=== PATIENT | female | born 1990 | race African-American/Black ===

== ENCOUNTER 2016-05-09 12:30 | Emergency (ER) | payer OTHER ==
[2016-05-09 13:43] LABS: BILIRUBIN NEGATIVE (NEGATIVE); BLOOD TRACE-INTACT Ery/uL (NEGATIVE); CLARITY CLEAR (CLEAR); COLOR YELLOW (YELLOW); GLUCOSE (U) NORMAL (NORMAL); KETONE (U) NEGATIVE (NEGATIVE); LEUKOCYTES TRACE Leu/uL (NEGATIVE); NITRITE NEGATIVE (NEGATIVE); PROTEIN NEGATIVE (NEGATIVE); UROBILINOGEN 0.2 mg/dL (0.2-1.0)
[2016-05-09 13:54] LABS: BACTERIA TRACE
[2016-05-09 16:11] LABS: BASOPHIL 0.3 % (0-2); EOSINOPHIL 2.6 % (0-5); HCT 38.5 % (37.0-47.0); HGB 13.2 g/dl (12.5-16.0); LYMPHOCYTE 27.5 % (15-48); MCH 31.2 pg (25.0-31.0); MCHC 34.3 g/dL (32.0-36.0); MONOCYTE 6.1 % (0-12); MPV 9.9 fL (6.0-9.5); NEUTROPHIL 63.5 % (41-80); PLT 349 K/uL (150-400); RBC 4.23 M/uL (4.20-5.40); WBC 11.5 K/uL (4.0-10.5)
[2016-05-09 16:37] LABS: CREATININE 0.8 mg/dL (0.5-1.0)
== END 2016-05-09 18:17 | disposition home or self-care (01) ==
LOC: FER 12:30
PROVIDERS: Internal Medicine
DX: A64 Unspecified sexually transmitted disease (principal); N39.0 Urinary tract infection, site not specified; N73.0 Acute parametritis and pelvic cellulitis; F17.200 Nicotine dependence, unspecified, uncomplicated; Z87.440 Personal history of urinary (tract) infections; Z98.51 Tubal ligation status
CPT/HCPCS: 36415; 80048; 81001; 85025; 87210

== ENCOUNTER 2016-06-30 18:50 | Emergency (ER) | payer OTHER ==
[2016-06-30 19:16] LABS: BASOPHIL 0.4 % (0-2); EOSINOPHIL 4.8 % (0-5); HCT 38.3 % (37.0-47.0); HGB 13.2 g/dl (12.5-16.0); MCH 31.4 pg (25.0-31.0); MCHC 34.5 g/dL (32.0-36.0); MONOCYTE 7.1 % (0-12); MPV 10.1 fL (6.0-9.5); NEUTROPHIL 59.7 % (41-80); PLT 308 K/uL (150-400); RBC 4.21 M/uL (4.20-5.40); RDW 12.3 % (11.5-14.0); WBC 11.3 K/uL (4.0-10.5)
[2016-06-30 19:33] LABS: BILIRUBIN NEGATIVE (NEGATIVE); BLOOD NEGATIVE Ery/uL (NEGATIVE); COLOR YELLOW (YELLOW); GLUCOSE (U) NORMAL (NORMAL); KETONE (U) NEGATIVE (NEGATIVE); LEUKOCYTES 1+ Leu/uL (NEGATIVE); NITRITE NEGATIVE (NEGATIVE); PROTEIN NEGATIVE (NEGATIVE); SPECIFIC GRAVITY 1.015 (1.001-1.030); UROBILINOGEN 0.2 mg/dL (0.2-1.0)
[2016-06-30 19:34] LABS: CLARITY HAZY (CLEAR)
[2016-06-30 19:36] LABS: BACTERIA TRACE
[2016-06-30 20:42] LABS: CREATININE 0.8 mg/dL (0.5-1.0); POTASSIUM 4.2 mmol/L (3.5-5.1)
== END 2016-06-30 22:39 | disposition home or self-care (01) ==
LOC: FER 18:50
PROVIDERS: Emergency Medicine Emergency Medical Services; Nurse Practitioner
DX: N30.00 Acute cystitis without hematuria (principal); F17.200 Nicotine dependence, unspecified, uncomplicated; Z87.440 Personal history of urinary (tract) infections; Z98.51 Tubal ligation status; Z90.710 Acquired absence of both cervix and uterus
CPT/HCPCS: 36415; 80048; 81001; 85025; 87088; J1170; J1885

== ENCOUNTER 2020-12-24 13:04 | Emergency (ER) | payer OTHER ==
[2020-12-24 13:56] LABS: BASOPHIL 0.7 % (0-2); EOSINOPHIL 8.9 % (0-5); HCT 35.9 % (37.0-47.0); LYMPHOCYTE 35.5 % (15-48); MCH 30.7 pg (25.0-31.0); MCHC 33.4 g/dL (32.0-36.0); MCV 91.8 fL (78.0-100.0); MONOCYTE 6.9 % (0-12); MPV 9.5 fL (6.0-9.5); NEUTROPHIL 47.8 % (41-80); NRBC 0; PLT 244 K/uL (150-400); RBC 3.91 M/uL (4.20-5.40); WBC 8.8 K/uL (4.0-10.5)
[2020-12-24 14:16] LABS: BUN/CREAT RATIO (CALC) 13.3 RATIO; CREATININE 0.75 mg/dL (0.51-0.95); POTASSIUM 3.9 mmol/L (3.5-5.1)
[2020-12-24] MEDS ORDERED: CYCLOBENZAPRINE10 MG PO (16:21)
[2020-12-24] MEDS ORDERED: NORCO 5-325 TA1 EACH PO (16:21)
[2020-12-24] MEDS ORDERED: MEDROL 4MG DOSEP4 MG PO (16:21)
== END 2020-12-24 16:54 | disposition home or self-care (01) ==
LOC: FER 13:04
PROVIDERS: Nurse Practitioner Family
DX: S13.4XXA Sprain of ligaments of cervical spine, initial encounter (principal); S23.3XXA Sprain of ligaments of thoracic spine, initial encounter; S33.5XXA Sprain of ligaments of lumbar spine, initial encounter; T14.8XXA Other injury of unspecified body region, initial encounter; V03.90XA Pedestrian on foot injured in collision with car, pick-up truck or van, unspecified whether traffic or nontraffic accident, initial encounter; Y92.410 Unspecified street and highway as the place of occurrence of the external cause
CPT/HCPCS: 36415; 70450; 71045; 72125; 72128; 72131; 73110; 73130; 73552; 80048; 85025; J1100; J2270